=== PATIENT | male | born 1970 | race African-American/Black ===

== ENCOUNTER 2021-05-23 18:24 | Emergency (ER) | payer OTHER ==
[2021-05-23 21:35] LABS: CORONAVIRUS 2019 SARS-COV-2 NEGATIVE (NEGATIVE); INFLUENZA A NAA NEGATIVE (NEGATIVE)
[2021-05-23 21:58] LABS: BASOPHIL 0.6 % (0-2); EOSINOPHIL 0.9 % (0-5); HCT 50.7 % (42.0-52.0); HGB 15.5 g/dl (13.2-18.0); LYMPHOCYTE 31.7 % (15-48); MCHC 30.6 g/dL (32.0-36.0); MCV 78.5 fL (78.0-100.0); MONOCYTE 9.4 % (0-12); MPV 10.9 fL (6.0-9.5); NEUTROPHIL 57.1 % (41-80); NRBC 0; PLT 264 K/uL (150-400); RBC 6.46 M/uL (4.70-6.00); RDW 19.1 % (11.5-14.0); WBC 6.4 K/uL (4.0-10.5)
[2021-05-23 22:22] LABS: BUN/CREAT RATIO (CALC) 20.4 RATIO; CREATININE 0.93 mg/dL (0.67-1.17); FT4 (FREE T4) 0.9 ng/dL (0.76-1.46); POTASSIUM 3.8 mmol/L (3.5-5.1)
== END 2021-05-23 23:03 | disposition home or self-care (01) ==
LOC: FER 18:24
PROVIDERS: Internal Medicine
DX: R51.9 Headache, unspecified (principal); H57.11 Ocular pain, right eye; I10 Essential (primary) hypertension; Z20.822 Contact with and (suspected) exposure to COVID-19
CPT/HCPCS: 36415; 70450; 70486; 80048; 84439; 84443; 85025; J1885; U0002

== ENCOUNTER 2021-05-26 05:32 | Emergency (ER) | payer OTHER | END 2021-05-26 07:27 | disposition home or self-care (01) | LOC: FER 05:32 | DX: H53.8 Other visual disturbances (principal); I10 Essential (primary) hypertension | CPT/HCPCS: 99283; A9579 ==